=== PATIENT | female | born 1940 | race Caucasian/White ===

== ENCOUNTER 2017-01-29 12:55 | Day surgery (SDC) | payer MEDICARE, OTHER ==
[~2017-01-29] VITALS: Ht 170.2 cm; Wt 75.0 kg
[~2017-01-29 12:55] MED LIST: ALBU8.5H2 INHALATION; ASPI-973 PO; CETI10CA PO; ESTR1VAG VG; FOSI40TA2 PO; HYDR12.55 PO; LEVO75TA36 PO; METF-778 PO; MONT10TA23 PO; OMEP20CA11 PO; SIMV20TA4 PO; Sodium Chloride LOK Flush 10 mL Syringe IV PRN; VENL150C98 PO; fentaNYL-PF 50 mCg/mL 2 mL Inj IVPUSH PRN
[2017-01-29 13:23] VITALS: BP 119/63; PULSE 88; RESP 16; O2SAT 97
[2017-01-29] MEDS ORDERED: 0.9% Sodium Chloride 1,000 ML IV ONE (14:08)
[2017-01-29 14:24] VITALS: BP 92/44; PULSE 80; RESP 12; O2SAT 93
[2017-01-29 14:33] VITALS: BP 97/45; PULSE 85; RESP 14; O2SAT 98
[2017-01-29 14:38] VITALS: BP 107/50; PULSE 79; RESP 14; O2SAT 96
--- NOTE | 2017-01-29 14:57 | ENDO ---
[address] [address] ENDOSCOPY PROCEDURE PATIENT: MARYELLEN HILL : 1940 MR#: [id number] ADMIT: 01/29/2017 JOB ID: [id number] DATE OF SERVICE: 01/29/2017 TYPE OF OPERATION: Esophagogastroduodenoscopy with biopsy. Colonoscopy with biopsy. PREOPERATIVE DIAGNOSIS(ES): Epigastric pain, history of colon polyps. POSTOPERATIVE DIAGNOSIS(ES): 1. Small hiatal hernia. 2. Tortuous sigmoid colon from prior surgery. 3. A 3 mm cecal polyp, removed by cold biopsy forceps. ANESTHESIA: Fentanyl 100 mcg, Versed 5 mg IV administered. COMPLICATIONS: None. BLOOD LOSS: Minimal. DESCRIPTION OF PROCEDURE: After risks and benefits explained to the patient, informed consent was obtained. After anesthesia administered, upper endoscope was inserted in the mouth, intubating into the esophagus, stomach, second portion of duodenum. Mucosa carefully examined. After procedure was done, the scope withdrawn, procedure terminate. A colonoscope was then inserted from the rectum to the cecum. Mucosa carefully examined. Prep of the patient was fair after a two-day prep. After procedure was done, the scope withdrawn, procedure terminated. FINDINGS: Upon inspection of esophagus, esophagus was normal without masses, ulcers, or lesions. Z-line located at 40 cm from the incisors. Upon entering stomach, the stomach also normal without masses, ulcers, or lesions. Retroflexion showed small hiatal hernia. Duodenal bulb, first and second portion were normal. Biopsies taken of antrum, body of stomach and distal esophagus. Upon inspection of anus, no masses, hemorrhoids, ulcers, or fissures that were seen throughout the entire examination. There was a 3 mm cecal polyp, removed by cold biopsy forceps. The sigmoid colon was quite torturous from prior surgery. Retroflexion was normal. IMPRESSIONS: 1. Small hiatal hernia. 2. Tortuous sigmoid colon from prior surgery. 3. A 3 mm cecal polyp, removed by cold biopsy forceps. RECOMMENDATION: Await pathology results. Repeat colonoscopy in five years given history of colon polyps. Follow up in GI clinic as needed.
--- NOTE | 2017-02-01 15:17 | PATH ---
SURGICAL PATHOLOGY Attending Physician:Lam Donovan MD CASE STATUS: Signed Out PATIENT NAME: MARYELLEN HILL PID: [id number] : 1940 DATE COLLECTED:01/29/2017 00:00 SPECIMEN: 1: Stomach, Antrum, Biopsy 2: Gastric, Biopsy 3: Esophagus, Biopsy 4: Colon, Polyp CLINICAL HISTORY: 1). ANTRUM BIOPSY 2). GASTRIC BODY BIOPSY 3). DISTAL ESOPHAGUS BIOPSY 4). CECAL POLYP FINAL DIAGNOSIS: 1.GASTRIC ANTRUM BIOPSY: MUCOSAL HYPEREMIA WITHOUT ASSOCIATED SIGNIFICANT INFLAMMATION INVOLVING ANTRAL MUCOSA. Negative for evidence of Helicobacter on H&E stain. Negative for intestinal metaplasia. Negative for dysplasia and malignancy. 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 Negative for evidence of Helicobacter on H&E stain. Negative for intestinal metaplasia. Negative for dysplasia and malignancy. 3.DISTAL ESOPHAGUS BIOPSY: FRAGMENTS OF SQUAMOUS EPITHELIUM WITH NO GASTRIC-TYPE EPITHELIUM IDENTIFIED. Negative for significant atypia. Negative for intraepithelial eosinophils. 4.CECAL POLYP: TUBULAR ADENOMA INVOLVING TWO BIOPSY FRAGMENTS. ICD10 D12.0 GROSS DESCRIPTION: The specimens are received in formalin, labeled with the patient's name, and sublabeled as the following: (1) antrum biopsy; (2) gastric body biopsy; (3) distal esophagus biopsy; (4) cecal polyp. (1) The specimen consists of a fragment of yoon-white glistening rubbery semi-translucent tissue (0.5 x 0.3 x 0.2 cm). Section code: (1A) tissue. Specimen entirely submitted. (2) The specimen consists of multiple fragments of yoon-white glistening rubbery semi-translucent tissue (0.7 x 0.5 x 0.1 cm in aggregate). Section code: (2A) tissue. Specimen entirely submitted. (3) The specimen consists of multiple fragments of leija glistening translucent tissue (0.6 x 0.3 x >0.1 cm in aggregate). Section code: (3A) tissue. Specimen entirely submitted. (4) The specimen consists of multiple fragments of yoon-white glistening rubbery semi-translucent tissue (10.5 x 0.2 x 0.2 cm in aggregate). Section code: (4A) tissue. Specimen entirely submitted. 01/31/17 MICRO DESCRIPTION: See diagnosis. ICD-9 CODES: CPT CODES: 1: 44820 2: 26228 3: 75996 4: 02257 Electronically Signed Out Rodo Rush MD [facility] [address], [place] [address] Technical component performed at [facility], [facility] [address], [place], [address]
== END 2017-01-29 23:59 | disposition home or self-care (01) ==
LOC: END 12:55
PROVIDERS: ATTEND Internal Medicine Gastroenterology
DX: Z12.11 Encounter for screening for malignant neoplasm of colon (principal); D12.0 Benign neoplasm of cecum; K63.89 Other specified diseases of intestine; K29.50 Unspecified chronic gastritis without bleeding; Z86.010 Personal history of colon polyps; K21.9 Gastro-esophageal reflux disease without esophagitis; K44.9 Diaphragmatic hernia without obstruction or gangrene; J44.9 Chronic obstructive pulmonary disease, unspecified; E11.9 Type 2 diabetes mellitus without complications; I10 Essential (primary) hypertension; E03.9 Hypothyroidism, unspecified; Z79.82 Long term (current) use of aspirin; Z79.84 Long term (current) use of oral hypoglycemic drugs
CPT/HCPCS: 43239; 45380; 99153; G0500; J2250; J3010; J7030